=== PATIENT | female | born 1960 | race Caucasian/White ===

== ENCOUNTER 2022-08-16 16:17 | Emergency (ER) | payer OTHER ==
[~2022-08-16] VITALS: Ht 160 cm; Wt 43.1 kg
--- NOTE | 2022-08-16 16:40 | NUR ---
[id number] FOR "CHOKING ON PEANUT BUTTER 1 HOUR AGO". O2 SAT 100% ON ARRIVAL
--- NOTE | 2022-08-16 16:41 | NUR ---
DR. WATT AT BEDSIDE FOR EVAL
[2022-08-16] MEDS ORDERED: MAG HYDROX/AL HYDROX/SIMETH 30 ML UDC PO ONE (17:00)
[2022-08-16] MEDS ORDERED: LIDOCAINE VISCOUS 2% UD 15 ML UDC MM ONE (17:00)
[2022-08-16] MEDS ORDERED: LIDOCAINE VISCOUS 2% UD 15 ML UDC ONE (17:10)
[2022-08-16] MEDS ORDERED: MAG HYDROX/AL HYDROX/SIMETH 30 ML UDC ONE (17:10)
--- NOTE | 2022-08-16 17:46 | NUR ---
PT LEFT WITHOUT WAITING FOR DISCHARGE INSTRUCTION
[2022-08-16 17:49] VITALS: BP 122/88
== END 2022-08-16 17:52 | disposition home or self-care (01) ==
LOC: ER 16:19
DX: T17.328A Food in larynx causing other injury, initial encounter (principal); R07.89 Other chest pain; X58.XXXA Exposure to other specified factors, initial encounter; Y93.89 Activity, other specified; Y92.89 Other specified places as the place of occurrence of the external cause; Y99.8 Other external cause status
CPT/HCPCS: 71045-TC